=== PATIENT | female | born 1995 | race Asian ===

== ENCOUNTER 2021-04-23 10:55 | Inpatient (IN) ==
[2021-04-23 11:49] LABS: Bilirubin,Urine Negative (Negative); Blood, Urine Small mg/dL (Negative); Glucose,Urine (UA) Negative (Negative); Ketones,Urine Negative (Negative); Mucus,Urine Occasional /LPF (Occasional); Nitrite,Urine Negative (Negative); Protein,Urine Negative; RBC,Urine <1 /HPF (0-4); Squamous Epithelial Cell,Urine Occasional /HPF (0-10); Urine Appearance CLEAR (Clear); Urine Color Yellow (Yellow); Urine Urobilinogen < 2.0 EU/DL (0.2-1.0)
[2021-04-23] MEDS ORDERED: miSOPROStoL 200 MCG TABLET VAG PRN (13:35)
[2021-04-23] MEDS ORDERED: ONDANSETRON 4 MG/2 ML VIAL IV PRN (13:35)
[2021-04-23] MEDS ORDERED: LACTATED RINGERS 500 ML IV PRN (13:35)
[2021-04-23] MEDS ORDERED: CARBOPROST TROMETHAMINE 250 MCG/ML AMP IM PRN (13:35)
[2021-04-23] MEDS ORDERED: TERBUTALINE 1 MG/1 ML VIAL SUBCUT PRN (13:35)
[2021-04-23] MEDS ORDERED: MEPERIDINE 50 MG/1 ML VIAL IV PRN (13:35)
[2021-04-23] MEDS ORDERED: LIDOCAINE 1% 50 ML VIAL MISC INJ ONE (13:35)
[2021-04-23] MEDS: LACTATED RINGERS 1,000 ML IV SCH ×2 (13:45→16:24)
[2021-04-23] MEDS: OXYTOCIN/LR 20 UNIT/1,000 ML BAG IV SCH (13:49)
[2021-04-23 13:56] LABS: Basophils % 0.3 % (0.0-0.8); Eosinophils # 0.1 10*3/uL (0.0-0.87); Hemoglobin 12.4 GM/DL (12.0-16.0); Immature Granulocytes % 0.7 %; Immature Granulocytes Absolute 0.09 #; Lymphocytes # 2.4 10*3/uL (1.4-4.0); Lymphocytes % 18.2 % (21.3-54.2); Mean Corpuscular Volume 92.6 FL (87-102); Mean Platelet Volume 10.5 FL (9.6-12.0); Monocytes % 5.4 % (1.7-12.7); Neutrophils % 74.4 % (38.7-73.9); Platelet Count 197 T/CUMM (130-400); Red Blood Count 4.32 MC/CUMM (3.8-5.5); Red Cell Distribution Width 12.5 % (9.3-17.3); White Blood Count 13.2 T/CUMM (4-12)
[2021-04-23 14:14] LABS: Bilirubin,Total 0.5 MG/DL (0.20-1.00); Calcium 8.7 MG/DL (8.5-10.1); Potassium 3.7 MMOL/L (3.5-5.1); Total Protein 7.9 G/DL (6.4-8.2)
[2021-04-23 14:44] LABS: HIV Antigen/Antibody Result Nonreactive (Nonreactive); Rubella Antibody IgG Result Reactive (NonReactive)
[2021-04-23 15:01] LABS: Hepatitis B Surface Ag Result Non-Reactive (NonReactive)
[2021-04-23] MEDS ORDERED: hydrOXYzine HCL 25 MG/1 ML VIAL IM PRN (15:47)
[2021-04-23] MEDS ORDERED: NALOXONE 0.4 MG/ML VIAL IV PRN (15:47)
[2021-04-23] MEDS ORDERED: diphenhydrAMINE 50 MG/1 ML VIAL IV PRN (15:47)
[2021-04-23] MEDS ORDERED: FAMOTIDINE 20 MG/2 ML VIAL IV ONE ×2 (15:47→15:51)
[2021-04-23] MEDS ORDERED: ePHEDrine 50 MG/ML VIAL IV PRN (15:47)
[2021-04-23] MEDS ORDERED: PROMETHAZINE 25 MG/1 ML VIAL IM PRN (15:47)
[2021-04-23] MEDS ORDERED: CITRIC ACID/SODIUM CITRATE 30 ML UDCUP PO ONE (15:47)
[2021-04-23] MEDS ORDERED: ePHEDrine 50 MG/ML VIAL ONE (15:51)
[2021-04-23] MEDS ORDERED: CITRIC ACID/SODIUM CITRATE 30 ML UDCUP ONE (15:51)
[2021-04-23] MEDS ORDERED: fentaNYL 2 MCG/ROPIV 0.2% EPID 100 ML EPIDURAL ONE (15:51)
[2021-04-23] MEDS: fentaNYL 2 MCG/ROPIV 0.2% EPID 100 ML EPIDURAL SCH (16:23)
[2021-04-23 17:24] LABS: Bilirubin,Urine Negative (Negative); Blood, Urine Negative (Negative); Glucose,Urine (UA) Negative (Negative); Ketones,Urine 5 mg/dL (Negative); Mucus,Urine Occasional /LPF (Occasional); Nitrite,Urine Negative (Negative); Protein,Urine Negative; RBC,Urine <1 /HPF (0-4); Squamous Epithelial Cell,Urine Occasional /HPF (0-10); Urine Appearance CLEAR (Clear); Urine Color Straw (Yellow); Urine Specific Gravity 1.006 (1.001-1.035); Urine Urobilinogen < 2.0 EU/DL (0.2-1.0)
[2021-04-24] MEDS: fentaNYL 2 MCG/ROPIV 0.2% EPID 100 ML EPIDURAL SCH (00:45)
[2021-04-24] MEDS: LACTATED RINGERS 1,000 ML IV SCH (00:46)
[2021-04-24] MEDS ORDERED: ACETAMINOPHEN 325 MG TABLET PO PRN ×2 (05:14→11:49)
[2021-04-24] MEDS ORDERED: AMPICILLIN INJ 2,000 MG in SODIUM CHLORIDE 0.9% 100 ML IV ONE (05:35)
[2021-04-24] MEDS ORDERED: miSOPROStoL 200 MCG TABLET ONE (07:00)
[2021-04-24] MEDS ORDERED: OXYTOCIN/LR 20 UNIT/1,000 ML BAG IV ONE ×2 (07:00→11:49)
[2021-04-24] MEDS ORDERED: METHYLERGONOVINE 0.2 MG/1 ML AMP ONE (07:01)
[2021-04-24] MEDS ORDERED: CARBOPROST TROMETHAMINE 250 MCG/ML AMP IM ONE (07:01)
[2021-04-24 09:17] LABS: Cord Venous Blood HCO3 23.3 MMOL/L; Cord Venous Blood PCO2 42.1 MMHG; Cord Venous Blood PO2 33.4
[2021-04-24] MEDS ORDERED: AMPICILLIN INJ 1,000 MG in SODIUM CHLORIDE 0.9% 100 ML IV SCH (09:30)
[2021-04-24] MEDS ORDERED: IBUPROFEN 800 MG TABLET PO ONE (10:40)
[2021-04-24] MEDS: OXYTOCIN/LR 20 UNIT/1,000 ML BAG IV SCH (11:28)
[2021-04-24] MEDS ORDERED: oxyCODONE/ACETAMINOPHEN 5-325 MG TABLET PO PRN (11:49)
[2021-04-24] MEDS ORDERED: LANOLIN 50% CREAM 0.3 OZ TUBE TOP PRN (11:49)
[2021-04-24] MEDS ORDERED: DIPH/TET/ACEL PERT BOOSTER VACCINE 0.5 ML VIAL IM ONE (11:49)
[2021-04-24] MEDS ORDERED: RHO(D) IMMUNE GLOBULIN 300 MCG SYRINGE IM ONE (11:49)
[2021-04-24] MEDS ORDERED: WITCH HAZEL PADS 100/JAR TOP PRN (11:49)
[2021-04-24] MEDS ORDERED: HYDROCORTISONE 2.5% RECTAL CREAM 30 GM TUBE TOP PRN (11:49)
[2021-04-24] MEDS ORDERED: BISACODYL 10 MG SUPP RECTAL PRN (11:49)
[2021-04-24] MEDS ORDERED: MEASLES/MUMPS/RUBELLA VACCINE 0.5 ML VIAL SUBCUT ONE (11:49)
[2021-04-24] MEDS: oxyCODONE/ACETAMINOPHEN 5-325 MG TABLET PO PRN ×2 (11:55→15:45)
[2021-04-24] MEDS: BENZOCAINE 20%/MENTHOL 0.5% SPRAY 56 GM CAN TOP PRN (11:56)
[2021-04-24] MEDS: DOCUSATE SODIUM 100 MG CAPSULE PO SCH (21:06)
[2021-04-24] MEDS: IBUPROFEN 800 MG TABLET PO PRN (21:07)
[2021-04-25 06:03] LABS: Basophils # 0.1 10*3/uL (0.0-0.2); Basophils % 0.4 % (0.0-0.8); Eosinophils # 0.3 10*3/uL (0.0-0.87); Eosinophils % 1.7 % (0.00-10.9); Hematocrit 30.8 VOL% (35.7-47.0); Immature Granulocytes % 0.9 %; Immature Granulocytes Absolute 0.15 #; Mean Corpuscular HGB Conc 31.8 GM/DL (32-36); Mean Corpuscular Volume 93.1 FL (87-102); Mean Platelet Volume 10.6 FL (9.6-12.0); Monocytes % 6.8 % (1.7-12.7); Neutrophils % 73.2 % (38.7-73.9); Red Cell Distribution Width 12.8 % (9.3-17.3)
[2021-04-25 06:14] LABS: Hemoglobin 9.8 GM/DL (12.0-16.0); Red Blood Count 3.31 MC/CUMM (3.8-5.5); White Blood Count 17.5 T/CUMM (4-12)
[2021-04-25 06:15] LABS: Platelet Count 108 T/CUMM (130-400)
[2021-04-25] MEDS: DOCUSATE SODIUM 100 MG CAPSULE PO SCH ×2 (08:32→19:47)
[2021-04-25] MEDS: IBUPROFEN 800 MG TABLET PO PRN ×2 (08:35→19:46)
[2021-04-26] MEDS: oxyCODONE/ACETAMINOPHEN 5-325 MG TABLET PO PRN (01:17)
[2021-04-26] MEDS: DOCUSATE SODIUM 100 MG CAPSULE PO SCH ×2 (01:20→08:59)
[2021-04-26] MEDS ORDERED: ACETAMINOPHEN/CODEINE 300-30 MG TABLET PO PRN (07:49)
[2021-04-26] MEDS ORDERED: ACETAMINOPHEN/CODEINE 300-30 MG TABLET ONE (07:52)
[2021-04-26] MEDS: BENZOCAINE 20%/MENTHOL 0.5% SPRAY 56 GM CAN TOP PRN (07:56)
[2021-04-26] MEDS: IBUPROFEN 800 MG TABLET PO PRN (07:57)
[2021-04-26 08:34] VITALS: BP 110/67
== END 2021-04-26 14:00 | disposition home or self-care (01) | DRG 560 ==
LOC: N.LD 10:55 → N.OB 04-24 11:46
PROVIDERS: ADMIT Obstetrics & Gynecology; ATTEND Obstetrics & Gynecology